=== PATIENT | female | born 1955 | race Caucasian/White ===

== ENCOUNTER → 2017-09-19 | Outpatient (CLI) | payer OTHER ==
[~2017-09-19] VITALS: Ht 157.5 cm; Wt 63.6 kg
[~2017-09-19] MED LIST: ESCITALOPRAM OXA5 MG PO; NEXIUM40 MG PO; RANITIDINE HCL300 MG PO
[2017-09-19 17:20] VITALS: BP 106/56
== END | disposition home or self-care (01) ==
LOC: IVINF 09-18 09:00
DX: M81.0 Age-related osteoporosis without current pathological fracture (principal); Z87.19 Personal history of other diseases of the digestive system
CPT/HCPCS: 96365; J3489